=== PATIENT | male | born 1985 | race Caucasian/White ===

== ENCOUNTER 2017-08-06 17:53 | Emergency (ER) | payer OTHER ==
[2017-08-06 19:06] LABS: MEAN CORPUSCULAR HEMOGLOBIN 29.9 pg (27.0-33.0); MEAN CORPUSCULAR HGB CONC 34.3 g/dl (32.0-36.5); MEAN CORPUSCULAR VOLUME 87.1 fl (80.0-96.0); PLATELET COUNT, AUTOMATED 315 10^3/uL (150-450); WHITE BLOOD COUNT 8.2 10^3/uL (4.0-10.0)
[2017-08-06 19:26] LABS: METHADONE URINE NEGATIVE (NEGATIVE)
[2017-08-06 19:37] LABS: ALBUMIN 4.3 GM/DL (3.2-5.2); ALBUMIN/GLOBULIN RATIO 1.26 (1.00-1.93); ALKALINE PHOSPHATASE 73 U/L (45-117); ALT/SGPT 26 U/L (12-78); ANION GAP 7 MEQ/L (8-16); AST/SGOT 19 U/L (7-37); BILIRUBIN,DIRECT 0.1 MG/DL (0.0-0.2); BILIRUBIN,TOTAL 0.5 MG/DL (0.2-1.0); BLOOD UREA NITROGEN 9 MG/DL (7-18); CALCIUM LEVEL 8.8 MG/DL (8.5-10.1); CARBON DIOXIDE LEVEL 28 MEQ/L (21-32); CHLORIDE LEVEL 104 MEQ/L (98-107); CREATININE FOR GFR 0.93 MG/DL (0.70-1.30); GLOMERULAR FILTRATION RATE > 60.0 (>60); GLUCOSE, FASTING 106 MG/DL (70-105); POTASSIUM SERUM 3.7 MEQ/L (3.5-5.1); SODIUM LEVEL 139 MEQ/L (136-145); TOTAL PROTEIN 7.7 GM/DL (6.4-8.2)
[2017-08-06] MEDS ORDERED: MAALOX 30 ML SUSP *UDC PO ×2 (20:15)
[2017-08-06] MEDS ORDERED: ACETAMINOPHEN TAB 650MG DOSE (2X325MG) PO ×2 (20:15)
[2017-08-06] MEDS ORDERED: MOM 30ML SUSPENSION UDC PO ×2 (20:15)
[2017-08-06] MEDS ORDERED: traZODone 50 MG TAB PO ×2 (20:15)
== END 2017-08-07 11:54 | disposition short-term general hospital (02) ==
LOC: M ED 17:53 → M ED INP 20:10
DX: F32.9 Major depressive disorder, single episode, unspecified (principal); G89.29 Other chronic pain; M54.9 Dorsalgia, unspecified; Z86.59 Personal history of other mental and behavioral disorders; Z88.1 Allergy status to other antibiotic agents
CPT/HCPCS: 93005

== ENCOUNTER → 2017-08-24 | Outpatient (CLI) | payer SELFPAY | LOC: M OUTALCOH 11:00 | DX: F15.20 Other stimulant dependence, uncomplicated (principal) ==

== ENCOUNTER 2017-09-04 08:47 | Outpatient (RCR) | payer SELFPAY | END 2017-09-13 | LOC: M OUTALCOH 09-06 11:00 | DX: F15.20 Other stimulant dependence, uncomplicated (principal) ==

== ENCOUNTER 2017-09-26 16:00 | Outpatient (RCR) | payer SELFPAY | END 2017-10-11 | LOC: M OUTALCOH 10-03 16:00 | DX: F15.20 Other stimulant dependence, uncomplicated (principal) ==

== ENCOUNTER 2017-10-17 16:00 | Outpatient (RCR) | payer SELFPAY | END 2017-11-11 | LOC: M OUTALCOH 10-24 16:00 | DX: F15.20 Other stimulant dependence, uncomplicated (principal) ==

== ENCOUNTER 2017-11-17 08:45 | Outpatient (RCR) | payer SELFPAY | END 2017-12-11 | LOC: M OUTALCOH 11-22 08:45 | DX: F15.20 Other stimulant dependence, uncomplicated (principal) ==

== ENCOUNTER 2017-12-13 10:11 | Outpatient (RCR) | payer SELFPAY | END 2018-01-11 | LOC: M OUTALCOH 10:11 | DX: F15.20 Other stimulant dependence, uncomplicated (principal) ==

== ENCOUNTER → 2018-06-12 | Outpatient (CLI) | payer OTHER ==
[2018-06-12 13:41] LABS: HEMATOCRIT 43.9 % (42.0-52.0); MEAN CORPUSCULAR HEMOGLOBIN 30.7 pg (27.0-33.0); MEAN CORPUSCULAR HGB CONC 34.2 g/dl (32.0-36.5); PLATELET COUNT, AUTOMATED 276 10^3/uL (150-450); RED BLOOD COUNT 4.88 10^6/uL (4.30-6.10); RED CELL DISTRIBUTION WIDTH 12.2 % (11.5-14.5); WHITE BLOOD COUNT 15.5 10^3/uL (4.0-10.0)
[2018-06-12 14:17] LABS: ALBUMIN 3.8 GM/DL (3.2-5.2); ALBUMIN/GLOBULIN RATIO 1.19 (1.00-1.93); ALKALINE PHOSPHATASE 61 U/L (45-117); ALT/SGPT 21 U/L (12-78); ANION GAP 8 MEQ/L (8-16); AST/SGOT 13 U/L (7-37); BILIRUBIN,TOTAL 0.2 MG/DL (0.2-1.0); BLOOD UREA NITROGEN 11 MG/DL (7-18); CALCIUM LEVEL 8.7 MG/DL (8.5-10.1); CARBON DIOXIDE LEVEL 26 MEQ/L (21-32); CHLORIDE LEVEL 107 MEQ/L (98-107); GLOMERULAR FILTRATION RATE > 60.0 (>60); GLUCOSE, FASTING 124 MG/DL (70-100); POTASSIUM SERUM 3.6 MEQ/L (3.5-5.1); SODIUM LEVEL 141 MEQ/L (136-145)
== END ==
LOC: M WUC 11:14
DX: F11.20 Opioid dependence, uncomplicated (principal)
CPT/HCPCS: 84443

== ENCOUNTER → 2023-08-21 | Outpatient (CLI) | payer SELFPAY | LOC: M OUTALCOH 08:00 | PROVIDERS: ATTEND Psychiatry & Neurology Psychiatry | DX: Z13.39 Encounter for screening examination for other mental health and behavioral disorders (principal) ==

== ENCOUNTER → 2023-09-13 | Outpatient (RCR) | payer SELFPAY | LOC: M OUTALCOH 09-01 13:24 | PROVIDERS: ATTEND Psychiatry & Neurology Psychiatry | DX: F15.20 Other stimulant dependence, uncomplicated (principal); Z72.0 Tobacco use ==

== ENCOUNTER 2023-10-11 16:00 | Outpatient (RCR) | payer SELFPAY | END 2023-10-12 | LOC: M OUTALCOH 16:00 | PROVIDERS: ATTEND Psychiatry & Neurology Psychiatry | DX: F15.20 Other stimulant dependence, uncomplicated (principal); Z72.0 Tobacco use ==

== ENCOUNTER 2024-01-15 20:19 | Emergency (ER) | payer OTHER ==
[~2024-01-15] VITALS: Ht 177.8 cm; Wt 62.7 kg
[2024-01-15 20:25] VITALS: BP 143/86; TEMP 97.8; O2SAT 100
[2024-01-15] MEDS: IBUPROFEN 800 MG TAB PO ONE (20:46)
[2024-01-15] MEDS: traMADol 50 MG TAB PO ONE (20:47)
== END 2024-01-15 22:13 | disposition home or self-care (01) ==
LOC: EDBD 20:19 → M ED 20:19
DX: S42.022A Displaced fracture of shaft of left clavicle, initial encounter for closed fracture (principal); V19.9XXA Pedal cyclist (driver) (passenger) injured in unspecified traffic accident, initial encounter; Y92.410 Unspecified street and highway as the place of occurrence of the external cause

== ENCOUNTER → 2024-02-08 | Outpatient (CLI) | payer OTHER | LOC: M SOG 07:59 | PROVIDERS: ATTEND Orthopaedic Surgery | DX: S42.002A Fracture of unspecified part of left clavicle, initial encounter for closed fracture (principal); Y93.9 Activity, unspecified; Y92.9 Unspecified place or not applicable ==

== ENCOUNTER 2024-02-13 07:26 | Day surgery (SDC) | payer OTHER ==
[~2024-02-13] VITALS: Ht 185.4 cm; Wt 64.5 kg
[~2024-02-13 07:26] MED LIST: IBUP-1114 PO; NORT25CA2 PO; RISP0.5T21 PO; TYLE650T38 PO
[2024-02-13] MEDS ORDERED: LR 1,000 ML IV SCH ×2 (07:35→10:45)
[2024-02-13] MEDS ORDERED: ROCURONIUM BROMIDE 50MG/5ML VIAL As Ordered ONE (07:50)
[2024-02-13] MEDS ORDERED: LIDOCAINE 2% 100MG/5ML SDV (FOR ANES.) As Ordered ONE (07:50)
[2024-02-13] MEDS ORDERED: ONDANSETRON 4MG 2ML VIAL As Ordered ONE (07:50)
[2024-02-13] MEDS ORDERED: SUGAMMADEX SODIUM 500 MG/5 ML VIAL (BRIDION) As Ordered ONE (07:50)
[2024-02-13] MEDS ORDERED: propofoL 200 MG/20 ML VIAL As Ordered ONE (07:51)
[2024-02-13] MEDS ORDERED: MIDAZOLAM INJ 2MG/2ML VIAL As Ordered ONE (07:55)
[2024-02-13] MEDS ORDERED: fentaNYL 250 MCG/5 ML INJECTION As Ordered ONE (07:55)
[2024-02-13] MEDS: ceFAZolin 2 GM/D5W 50 ML IV BAG As Ordered ONE (09:20)
[2024-02-13] MEDS: TRANEXAMIC ACID 100 MG/ML 10ML VIAL As Ordered ONE (09:24)
[2024-02-13] MEDS ORDERED: dexmedeTOMIDine (4MCG/ML)200MCG/50ML BTL (PRECEDEX) As Ordered ONE (09:31)
[2024-02-13] MEDS: VANCOMYCIN 500MG/10ML VIAL As Ordered ONE (10:18)
[2024-02-13] MEDS ORDERED: ONDANSETRON 4MG 2ML VIAL IV PRN (10:45)
[2024-02-13] MEDS ORDERED: fentaNYL 100 MCG/2 ML INJECTION IV PRN (10:45)
[2024-02-13] MEDS ORDERED: oxyCODONE 5MG TAB PO PRN (10:45)
[2024-02-13] MEDS: HYDROMORPHONE HCL 0.5 MG/ 0.5 ML SYRINGE IV PRN (11:53)
[2024-02-13 12:58] VITALS: BP 157/88; TEMP 98.6; O2SAT 99
== END 2024-02-13 13:11 | disposition home or self-care (01) ==
LOC: M SDC 07:26
PROVIDERS: ATTEND Orthopaedic Surgery
DX: S42.022A Displaced fracture of shaft of left clavicle, initial encounter for closed fracture (principal); V13.9XXA Unspecified pedal cyclist injured in collision with car, pick-up truck or van in traffic accident, initial encounter; Y93.55 Activity, bike riding; Y92.410 Unspecified street and highway as the place of occurrence of the external cause; Z79.899 Other long term (current) drug therapy; Z87.820 Personal history of traumatic brain injury; Z88.1 Allergy status to other antibiotic agents; Z88.8 Allergy status to other drugs, medicaments and biological substances; Z87.891 Personal history of nicotine dependence

== ENCOUNTER → 2024-02-23 | Outpatient (CLI) | payer OTHER | LOC: M SOG 07:55 | PROVIDERS: ATTEND Orthopaedic Surgery | DX: S42.022A Displaced fracture of shaft of left clavicle, initial encounter for closed fracture (principal); Y93.9 Activity, unspecified; Y92.9 Unspecified place or not applicable ==

== ENCOUNTER → 2024-03-27 | Outpatient (CLI) | payer OTHER | LOC: M SOG 07:56 | PROVIDERS: ATTEND Orthopaedic Surgery | DX: S42.022D Displaced fracture of shaft of left clavicle, subsequent encounter for fracture with routine healing (principal) ==